=== PATIENT | female | born 1995 | race Caucasian/White ===

== ENCOUNTER 2017-08-23 08:34 | Emergency (ER) | payer SELFPAY ==
[~2017-08-23 08:34] MED LIST: CIPR-344 PO; HYDR-4309 PO; NORG1TAB74 PO; POTA20TA94 PO; PROM-110 PO
[2017-08-23] MEDS ORDERED: NS(*) 0.9% 1000 ML BAG 1,000 ML IV ONE (08:40)
--- NOTE | 2017-08-23 08:49 | ER Report ---
History and Physical Time Seen By MD: 08:47 Hx. of Stated Complaint: PATIENT GOT DIZZY WHILE STANDING UP AND FELL. 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 Potential being otherwise no additional complaints noted REVIEW OF SYSTEMS: Respiratory: No cough, no dyspnea. Cardiovascular: No chest pain, no palpitations. Gastrointestinal: No vomiting, no abdominal pain. Musculoskeletal: No back pain. Remainder of the 14 system rev: Yes Allergies: Coded Allergies: No Known Drug Allergies (Unverified , 08/18/14) Home Meds Active Scripts Hydrocodone Bit/Acetaminophen (NORCO 5-325 TABLET) 1 Each Tablet, 1-2 EACH PO Q4H Y for PAIN, #14 Prov:NIA MELLO DO 01/06/15 Promethazine Hcl (PROMETHAZINE HCL) 25 Mg Tablet, 25 MG PO Q4H Y for NAUSEA/ VOMITING, #14 TAB Prov:NIA MELLO DO 01/06/15 Ciprofloxacin Hcl (CIPRO) 500 Mg Tablet, 500 MG PO BID, #14 Prov:NIA MELLO DO 01/06/15 Reported Medications Norgestimate-Ethinyl Estradiol (SPRINTEC) 1 Each Tablet, 1 EACH PO 08/18/14 Reviewed Nurses Notes: Yes Old Medical Records Reviewed: Yes Hx Smoking: No Smoking Status: Never Smoker Hx Substance Use Disorder: No Hx Alcohol Use: No Constitutional Vital Sign - Last 24 Hours 08/23/17 08:36 Pulse 100 Resp 20 B/P (MAP) 120/93 Pulse Ox 96 O2 Delivery Room Air Physical Exam General Appearance: The patient is alert, has no immediate need for airway protection and no current signs of toxicity. [ ] Eyes: Pupils equal and round no injection. Respiratory: Chest is non tender, lungs are clear to auscultation. Cardiac: regular rate and rhythm [ ] Gastrointestinal: Abdomen is soft and non tender, no masses, bowel sounds normal. Musculoskeletal: Neck: Neck is supple and non tender. Extremities have full range of motion and are non tender. Skin: Patient has a 1-1.5 cm angular laceration under her chin otherwise normal exam neurovascular intact [ ] DIFFERENTIAL DIAGNOSIS: After history and physical exam differential diagnosis was considered for syncope with laceration is a vagal syncope dehydration electrolyte imbalance Medical Decision Making Data Points Result Diagram: 08/23/17 0857 08/23/17 0857 Laboratory Hematology Test 08/23/17 00:00 08/23/17 08:57 Red Blood Count 4.97 M/uL (4.17-5.56) Mean Corpuscular Volume 89.7 fL (80.0-96.0) Mean Corpuscular Hemoglobin 29.9 pg (26.0-33.0) Mean Corpuscular Hemoglobin Concent 33.3 g/dL (32.0-36.0) Red Cell Distribution Width 13.1 % (11.5-14.5) Mean Platelet Volume 9.7 fL (7.2-11.1) Neutrophils (%) (Auto) 66.4 % (39.4-72.5) Lymphocytes (%) (Auto) 24.4 % (17.6-49.6) Monocytes (%) (Auto) 7.4 % (4.1-12.4) Eosinophils (%) (Auto) 1.2 % (0.4-6.7) Basophils (%) (Auto) 0.6 % (0.3-1.4) Nucleated RBC Relative Count (auto) 0.1 /100WBC Neutrophils # (Auto) 4.7 K/uL (2.0-7.4) Lymphocytes # (Auto) 1.7 K/uL (1.3-3.6) Monocytes # (Auto) 0.5 K/uL (0.3-1.0) Eosinophils # (Auto) 0.1 K/uL (0.0-0.5) Basophils # (Auto) 0.0 K/uL (0.0-0.1) Nucleated RBC Absolute Count (auto) 0.00 K/uL Sodium Level 138 mmol/L (137-145) Potassium Level 3.9 mmol/L (3.5-5.0) Chloride Level 101 mmol/L (98-107) Carbon Dioxide Level 22 mmol/L (22-31) Blood Urea Nitrogen 10 mg/dl (7-18) Creatinine 1.10 mg/dl (0.52-1.04) Glomerular Filtration Rate Calc > 60.0 Random Glucose 105 mg/dl (75-110) Calcium Level 10.0 mg/dl (8.4-10.2) Total Bilirubin 1.3 mg/dl (0.2-1.3) Aspartate Amino Transf (AST/SGOT) 32 U/L (0-35) Alanine Aminotransferase (ALT/SGPT) 47 U/L (0-56) Alkaline Phosphatase 53 U/L (0-126) Total Protein 7.6 gm/dl (6.3-8.2) Albumin 4.3 g/dl (3.5-5.0) Chemistry Test 08/23/17 00:00 08/23/17 08:57 White Blood Count 7.1 k/uL (4.5-11.0) Red Blood Count 4.97 M/uL (4.17-5.56) Hemoglobin 14.9 g/dL (12.0-16.0) Hematocrit 44.6 % (34.0-47.0) Mean Corpuscular Volume 89.7 fL (80.0-96.0) Mean Corpuscular Hemoglobin 29.9 pg (26.0-33.0) Mean Corpuscular Hemoglobin Concent 33.3 g/dL (32.0-36.0) Red Cell Distribution Width 13.1 % (11.5-14.5) Platelet Count 252 K/uL (150-450) Mean Platelet Volume 9.7 fL (7.2-11.1) Neutrophils (%) (Auto) 66.4 % (39.4-72.5) Lymphocytes (%) (Auto) 24.4 % (17.6-49.6) Monocytes (%) (Auto) 7.4 % (4.1-12.4) Eosinophils (%) (Auto) 1.2 % (0.4-6.7) Basophils (%) (Auto) 0.6 % (0.3-1.4) Nucleated RBC Relative Count (auto) 0.1 /100WBC Neutrophils # (Auto) 4.7 K/uL (2.0-7.4) Lymphocytes # (Auto) 1.7 K/uL (1.3-3.6) Monocytes # (Auto) 0.5 K/uL (0.3-1.0) Eosinophils # (Auto) 0.1 K/uL (0.0-0.5) Basophils # (Auto) 0.0 K/uL (0.0-0.1) Nucleated RBC Absolute Count (auto) 0.00 K/uL Glomerular Filtration Rate Calc > 60.0 Calcium Level 10.0 mg/dl (8.4-10.2) Total Bilirubin 1.3 mg/dl (0.2-1.3) Aspartate Amino Transf (AST/SGOT) 32 U/L (0-35) Alanine Aminotransferase (ALT/SGPT) 47 U/L (0-56) Alkaline Phosphatase 53 U/L (0-126) Total Protein 7.6 gm/dl (6.3-8.2) Albumin 4.3 g/dl (3.5-5.0) Urinalysis Test 08/23/17 00:00 ED Course/Re-evaluation ED Course ED clinical course medical decision making an 22-year-old female who had a mechanical fall syncopized witnessed no postictal phase which and laceration Laceration repair with a 7-0 nylon 1% lidocaine placed with good anesthesia 7 interrupted sutures are placed with good cosmesis patient tolerated well urgent follow-up in 7-10 days for suture removal Decision to Disposition Date: Aug 23, 2017 Decision to Disposition Time: 09:40 Depart Departure Latest Vital Signs Vital Signs Date Time Temp Pulse Resp B/P (MAP) Pulse Ox O2 Delivery O2 Flow Rate FiO2 08/23/17 08:36 100 20 120/93 96 Room Air Impression: Primary Impression: Laceration Additional Impression: Vasovagal syncope Condition: Improved Disposition: HOME OR SELF-CARE Referrals: SHERRON ELENA APRN RISK AND INSURANCE CONSULTANT-C 5 Days Patient Instructions: Facial Laceration (ED) Problem Qualifiers HARVEY MIRANDA MD Aug 23, 2017 08:48
[2017-08-23 09:05] LABS: PLATELET COUNT, AUTOMATED 252 K/uL (150-450)
[2017-08-23 10:00] VITALS: BP 125/90
== END 2017-08-23 10:30 | disposition home or self-care (01) ==
LOC: ER 09:03
DX: S01.81XA Laceration without foreign body of other part of head, initial encounter (principal); R55 Syncope and collapse
CPT/HCPCS: 12011; 85025; 96360; 99284; J7030; 82040; 82247; 82310; 82374; 82435; 82565; 82947; 84075; 84132; 84155; 84295; 84450; 84460; 84520